=== PATIENT | female | born 1990 | race Caucasian/White ===

== ENCOUNTER 2020-01-03 11:28 | Outpatient (RCR) | payer OTHER ==
[~2020-01-03 11:28] MED LIST: ALDACTONE 25MG25 M1 PO; AMOXICILLIN875 MG PO; ANTIVERT 12.512.5 MG PO; FERROUS SU325 MG/TAB PO; HUMALOG100 U/ML SQ; LANTUS100 U/ML SC; LASIX 20MG TABL20 MG PO; MOTRIN 600600 MG/TAB PO; NORCO 325 MG-7.1 TAB PO; NOVOLOG 100U100 U/M1 SC; PERCOCET 325 MG1 TA2 PO; PRENATAL PO; TOPROL XL 25MG25 MG PO; ZESTRIL 5MG5 MG PO; ZOFRAN ODT4 MG PO
== END 2020-03-12 | disposition home or self-care (01) ==
LOC: WSOH
DX: S66.117A Strain of flexor muscle, fascia and tendon of left little finger at wrist and hand level, initial encounter (principal); E03.9 Hypothyroidism, unspecified; E11.9 Type 2 diabetes mellitus without complications; Z72.0 Tobacco use; Z98.890 Other specified postprocedural states; Y99.0 Civilian activity done for income or pay

== ENCOUNTER 2020-01-25 11:45 | Outpatient (RCR) | payer OTHER | END 2020-03-12 | disposition home or self-care (01) | LOC: WSOT | DX: S66.117A Strain of flexor muscle, fascia and tendon of left little finger at wrist and hand level, initial encounter (principal) ==

== ENCOUNTER 2021-07-09 15:01 | Outpatient (CLI) | payer OTHER ==
[~2021-07-09] VITALS: Ht 170.2 cm; Wt 100.9 kg
[2021-07-09 15:12] VITALS: BP 112/65; PULSE 97; TEMP 97.6
[2021-07-09 15:40] VITALS: PULSE 100
[2021-07-09] MEDS ORDERED: ASPIRIN 81M81 MG/TA2 PO (15:40)
[2021-07-09] MEDS ORDERED: SYNTHROID200 MCG/VI IV (15:41)
[2021-07-09] MEDS ORDERED: HUMALOG100 U/ML SQ (15:41)
[2021-07-09] MEDS ORDERED: PROBIOTIC BLEN1 EACH PO (15:42)
[2021-07-09] MEDS ORDERED: PRENATAL (15:42)
[2021-07-09] MEDS ORDERED: VITAMIN D31000 I1 PO (15:44)
--- NOTE | 2021-07-09 16:04 | NUR ---
1512 PATIENT HERE FROM HOME WITH COMPLAINTS OF INCREASE SOB, AND HEART PALPITATIONS.EFM ON FHT 120 BABY VERY ACTIVE, ACCELERATIONS NOTED. NO CONTRACTIONS. SAO2 96% ON ROOM AIR. LUNGS CLEAR. NO FEVER.NO COUGH. PATIENT HAS A LONG HISTORY TYPE 1 DIABETIC WITH PULMONARY EDEMA AND CARDIOMYAPATHY AFTER LAST DELIVERY [address] ERICKSON CALLED AND UPDATED AND ORDERS TO TAKE PATIENT TO ER FOR A FULL WORKUP BY SUPERVISOR SALVAGE. COMPLETE ASSESSMENT DONE. 1540 FHT 120 BABY VERY ACTIVE. VS WNL AND SAT 97%. PATIENT TO WHEELCHAIR AND TRANSPORTED TO ER. REPORT GIVEN TO ANDRA DAMON TO ASSUME CARE
== END 2021-07-09 15:40 ==
LOC: LDRO 15:01
DX: O26.892 Other specified pregnancy related conditions, second trimester (principal); R06.02 Shortness of breath; R00.2 Palpitations; Z3A.24 24 weeks gestation of pregnancy

== ENCOUNTER 2021-07-09 15:55 | Emergency (ER) | payer OTHER ==
[~2021-07-09] VITALS: Ht 170.2 cm; Wt 100.9 kg
[~2021-07-09 15:55] MED LIST changes: +ASPIRIN 81M81 MG/TA2 PO; +PRENATAL; +PROBIOTIC BLEN1 EACH PO; +SYNTHROID200 MCG/VI IV; +VITAMIN D31000 I1 PO
[2021-07-09 15:59] VITALS: TEMP 97.7
[2021-07-09 16:58] VITALS: BP 124/79; PULSE 96
== END 2021-07-09 16:58 | disposition home or self-care (01) ==
LOC: COL.ER 15:55
DX: O99.412 Diseases of the circulatory system complicating pregnancy, second trimester (principal); R00.2 Palpitations; Z3A.24 24 weeks gestation of pregnancy

== ENCOUNTER 2021-10-04 05:41 | Inpatient (IN) | payer OTHER ==
[~2021-10-04] VITALS: Ht 170.2 cm; Wt 110.0 kg
[2021-10-04] VITALS (18 sets, daily range): BP systolic 117–144; BP diastolic 67–88; PULSE 67–104; TEMP 97.7–98.1
--- NOTE | 2021-10-04 05:45 | NUR ---
Pt arrives to unit ambulatory for scheduled section. Clean gown on, bed in low and locked position, call light within reach. US and toco explained and applied. Pt reports good movement, denies contractions, vaginal bleeding, or LOF. Pt denies changes in vision, RUQ pain, or headaches. 18G IV started in left forearm with 1 attempt. Admission labs obtained off IV start. Consents reviewed and signed with patient and spouse.
[2021-10-04 06:46] LABS: BASO # 0.1 K/mm3 (0.0-0.2); BASO % 0.8 % (0.0-2.0); EOS # 0.2 K/mm3 (0.0-0.7); EOS % 1.8 % (0.0-4.0); GRAN # 6.8 K/mm3 (1.4-6.5); GRAN % 66.6 % (42.2-75.2); HEMOGLOBIN 11.1 g/dl (12.5-16.0); LYMPH # 2.2 K/mm3 (1.2-3.4); LYMPH % 21.5 % (20.0-51.0); MEAN CELL VOLUME 92 fl (80.0-100.0); MEAN CORPUSCULAR HEMOGLOBIN 31 pg (27-31); MEAN CORPUSCULAR HGB CONC 34 g/dl (33.0-37.0); MEAN PLATELET VOLUME 11.2 fl (7.4-10.4); MONO # 0.8 K/mm3 (0.1-0.6); MONO % 7.9 % (1.7-9.3); PLATELET COUNT 206 K/mm3 (130-400); RED BLOOD COUNT 3.59 M/mm3 (4.10-5.30); REDCELL DISTRIBUTION WIDTH-CV 12.7 % (11.5-14.5)
[2021-10-04 06:49] LABS: HEMATOCRIT 32.9 % (37.0-47.0)
[2021-10-04 07:08] LABS: ALBUMIN 2.4 gm/dL (3.5-5.0); BILIRUBIN,TOTAL 0.6 mg/dL (0.2-1.2); CALCIUM 9.2 mg/dL (8.4-10.2); CREATININE, serum 0.87 mg/dL (0.57-1.11); POTASSIUM 4.1 mmol/L (3.5-4.5); TOTAL PROTEIN 6.2 gm/dL (6.2-8.1)
[2021-10-04 07:28] LABS: TSH w REFLEX 5.266 uIU/mL (0.350-4.940)
[2021-10-04] MEDS ORDERED: NORMODYNE200 MG (09:30)
--- NOTE | 2021-10-04 15:24 | NUR ---
1410-PER PT MONITOR BS 195 AT THIS TIME.
--- NOTE | 2021-10-04 18:08 | NUR ---
1510-PER PT MONITOR BS 102 AT THIS TIME. PT TO EAT DINNER.
--- NOTE | 2021-10-04 20:45 | NUR ---
PT CHECKED HER 2 HOUR POST PRANDIAL IT WAS 170. SHE CHECKED IT A LITTLE LATE.
[2021-10-05 00:15] VITALS: BP 144/76; PULSE 92; TEMP 98
[2021-10-05 04:10] VITALS: BP 140/78; PULSE 93; TEMP 97.6
[2021-10-05 05:15] LABS: HEMATOCRIT 26.8 % (37.0-47.0); HEMOGLOBIN 9.2 g/dl (12.5-16.0)
--- NOTE | 2021-10-05 07:20 | NUR ---
0733- This RN called to bedside by Pt, BS 66, Pt requests lluvia crackers, Peanut butter, and apple juice, provided.
[2021-10-05 07:30] VITALS: BP 149/85; PULSE 86; TEMP 98.5
--- NOTE | 2021-10-05 08:42 | NUR ---
0842- Pt rechecked BS prior to breakfast, 78.
--- NOTE | 2021-10-05 10:49 | NUR ---
Initial visit; Patient thanked Firer [employer]house for offering congratulations and God's blessings for the of their son. Firer [employer]house thanked patient for choosing [facility].
[2021-10-05 18:00] VITALS: BP 142/71; PULSE 91; TEMP 97.7
--- NOTE | 2021-10-05 18:30 | NUR ---
PT. FASTING GLUCOSE WAS 84 AT 1740
--- NOTE | 2021-10-05 21:00 | NUR ---
PT.'S 2 HOUR PP WAS 88 PT HAS SOME ICE CREAM AND RECHECK OF GLUCOSE WAS 135 AT 2225 PT STATES SHE HAS ADJUSTED HER PUMP ACCORDING TO INSTUCTIONS FROM [facility]
[2021-10-05 22:00] VITALS: BP 138/76; PULSE 86; TEMP 97.8
--- NOTE | 2021-10-06 00:50 | NUR ---
PT CALLS OUT SAYING SHE IS SHAKY AND SWEATING - HER BLLOD SUGAR IS 50- APPLE JUICE X 2 GIVEN - LADONNA CRACKERS AND PEANUT BUTTER GIVEN. RN ASKS PT IS SHE ADJUSTED HER SETTINGS ON HER PUMP PER MFM INSTRUCTIONS- SHE SAID NO AND SHE STATES SHE HAS TAKEN HER PUMP OFF. AFTER SNACK- PT UP TO BATHROOM- LINENS AND GOWN CHANGED. 0120 PT VS TAKEN. PT STATES SHE FEELS BETTER
--- NOTE | 2021-10-06 01:25 | NUR ---
RN OBSERVES PT. ADJUSTING THE SETTINGS ON HER PUMP. PT DENIES NEEDS AT THIS TIME
[2021-10-06 01:30] VITALS: BP 132/78; PULSE 85; TEMP 98
[2021-10-06 08:25] VITALS: BP 145/83; PULSE 98; TEMP 98.2
--- NOTE | 2021-10-06 08:40 | NUR ---
Pt reports fasting BS 62, requests apple juice, has lluvia crackers and peanut butter at bedside.
[2021-10-06] MEDS ORDERED: IBU600 MG PO (10:03)
[2021-10-06] MEDS ORDERED: PERCOCET 325 MG1 TA2 PO (10:04)
[2021-10-06] MEDS ORDERED: LASIX 20MG TABL20 MG PO (10:05)
[2021-10-06] MEDS ORDERED: LEVOXYL0.2 MG PO (10:05)
--- NOTE | 2021-10-06 11:18 | NUR ---
BS 87.
[2021-10-06 11:54] VITALS: BP 155/88; PULSE 91
--- NOTE | 2021-10-06 12:40 | NUR ---
1215- Pt checks BS due to "feeling hot", BS 47. Pt requests apple juice, lluvia crackers, and peanut butter. 1240- AC BS 106, Pt eating lunch now.
[2021-10-06 13:41] VITALS: BP 131/71; PULSE 98
--- NOTE | 2021-10-06 14:00 | NUR ---
1400- BS 80.
--- NOTE | 2021-10-06 15:05 | NUR ---
Pt states after her last BS she ate a plum, lluvia crackers, peanut butter. 1505- BS 66. Pt requests peanut butter, crackers, apple juice. Pt warm, diaphoretic and states she feels like her BS is continuing to drop.
[2021-10-06 15:40] VITALS: BP 147/81; PULSE 88; TEMP 97.8
--- NOTE | 2021-10-06 15:50 | NUR ---
1550- BS94
--- NOTE | 2021-10-06 16:50 | NUR ---
Pt reports BS 87 prior to eating chicken strips with ranch dressing.
--- NOTE | 2021-10-06 19:00 | NUR ---
1900 ASLEEP 2009 AWAKENED. BLOOD SUGAR DONE PER BE=880. WANTING TO GO HOME 2019 DR ERICKSON NOTIFIED OF PT BLOOD SUGAR. PERCOCETX1 AND LABATOLOL GIVEN. 2044 DISCHARGE INFORMATION AND PAPERWORK GIVEN WITH NO QUESTIONS AT THIS TIME 2109 DISMISSED TO HOME PER AMB ACC BY AND BABY AND [employer] NET C DEVELOPER.
== END 2021-10-06 21:10 | disposition home or self-care (01) | DRG 788 ==
LOC: OB 05:41
PROVIDERS: ADMIT Obstetrics & Gynecology
PROC: 10D00Z1 Extraction of Products of Conception, Low, Open Approach (ICD-10-PCS; principal; 2021-10-04)
DX: O24.02 Pre-existing type 1 diabetes mellitus, in childbirth (principal); O14.94 Unspecified pre-eclampsia, complicating childbirth; O26.893 Other specified pregnancy related conditions, third trimester; O99.284 Endocrine, nutritional and metabolic diseases complicating childbirth; E03.9 Hypothyroidism, unspecified; E10.649 Type 1 diabetes mellitus with hypoglycemia without coma; O35.8XX0 Maternal care for other (suspected) fetal abnormality and damage, not applicable or unspecified; Z79.4 Long term (current) use of insulin; Z79.890 Hormone replacement therapy; Z67.41 Type O blood, Rh negative; Z3A.37 37 weeks gestation of pregnancy; Z37.0 Single live birth; Z86.16 Personal history of COVID-19; Z14.1 Cystic fibrosis carrier
CPT/HCPCS: J0690; J1100; J1885; J2370; J2405; J2590; J2791; J7030

== ENCOUNTER 2021-10-08 16:51 | Inpatient (IN) | payer OTHER ==
[~2021-10-08] VITALS: Ht 152.4 cm; Wt 101.0 kg
[2021-10-08] VITALS (73 sets, daily range): BP systolic 148; BP diastolic 88; PULSE 96; O2SAT 87–100
[~2021-10-08 16:51] MED LIST changes: +IBU600 MG PO; +LEVOXYL0.2 MG PO; +NORMODYNE200 MG
[2021-10-08] MEDS ORDERED: TRANDATE 100MG100 MG PO (17:16)
[2021-10-08 17:35] LABS: BASO # 0.1 K/mm3 (0.0-0.2); BASO % 0.7 % (0.0-2.0); EOS # 0.3 K/mm3 (0.0-0.7); EOS % 2.5 % (0.0-4.0); GRAN # 7.3 K/mm3 (1.4-6.5); GRAN % 73.7 % (42.2-75.2); HEMOGLOBIN 10.8 g/dl (12.5-16.0); LYMPH # 1.6 K/mm3 (1.2-3.4); LYMPH % 15.9 % (20.0-51.0); MEAN CELL VOLUME 93 fl (80.0-100.0); MEAN CORPUSCULAR HEMOGLOBIN 32 pg (27-31); MEAN CORPUSCULAR HGB CONC 34 g/dl (33.0-37.0); MEAN PLATELET VOLUME 9.7 fl (7.4-10.4); MONO # 0.7 K/mm3 (0.1-0.6); MONO % 6.7 % (1.7-9.3); PLATELET COUNT 341 K/mm3 (130-400); RED BLOOD COUNT 3.41 M/mm3 (4.10-5.30); REDCELL DISTRIBUTION WIDTH-CV 12.9 % (11.5-14.5)
[2021-10-08 17:36] LABS: HEMATOCRIT 31.6 % (37.0-47.0)
[2021-10-08 17:40] LABS: COLLECTION METHOD CLEAN CATCH
[2021-10-08 17:50] LABS: PH 7 (5-8); SQUAMOUS EPITHELIAL 0-2 /hpf (0-10); URINE APPEARANCE Clear (CLEAR/HAZY); URINE BACTERIA None Seen /hpf (NONE SEEN); URINE BLOOD Negative (NEGATIVE); URINE COLOR Straw (YELLOW); URINE GLUCOSE 3+ (NEGATIVE); URINE KETONE Trace (NEGATIVE); URINE NITRATE Negative (NEGATIVE); URINE PROTEIN(semi-quant) 1+ (NEGATIVE); URINE RBC 0-2 /hpf (0-2); URINE UROBILINOGEN Negative (NEGATIVE)
[2021-10-08 17:54] LABS: ALBUMIN 2.7 gm/dL (3.5-5.0); BILIRUBIN,TOTAL 0.5 mg/dL (0.2-1.2); CREATININE, serum 1.03 mg/dL (0.57-1.11); POTASSIUM 4.3 mmol/L (3.5-4.5); TOTAL PROTEIN 6.7 gm/dL (6.2-8.1)
[2021-10-08 18:00] LABS: TROPONIN-I 0.023 ng/mL (0.00-0.033)
[2021-10-09] VITALS (1045 sets, daily range): BP systolic 118–155; BP diastolic 65–99; PULSE 86–101; TEMP 97.4–98.5; O2SAT 83–100
[2021-10-09 06:22] LABS: BASO # 0.1 K/mm3 (0.0-0.2); BASO % 0.7 % (0.0-2.0); EOS # 0.3 K/mm3 (0.0-0.7); EOS % 3.2 % (0.0-4.0); GRAN # 5.6 K/mm3 (1.4-6.5); GRAN % 64.6 % (42.2-75.2); LYMPH % 22.6 % (20.0-51.0); MEAN CELL VOLUME 94 fl (80.0-100.0); MEAN CORPUSCULAR HGB CONC 33 g/dl (33.0-37.0); MEAN PLATELET VOLUME 9.2 fl (7.4-10.4); MONO # 0.7 K/mm3 (0.1-0.6); MONO % 8.4 % (1.7-9.3); PLATELET COUNT 316 K/mm3 (130-400); RED BLOOD COUNT 3.07 M/mm3 (4.10-5.30)
[2021-10-09 06:28] LABS: HEMATOCRIT 28.7 % (37.0-47.0); HEMOGLOBIN 9.5 g/dl (12.5-16.0); MEAN CORPUSCULAR HEMOGLOBIN 31 pg (27-31)
[2021-10-09 06:59] LABS: CALCIUM 8.6 mg/dL (8.4-10.2); CREATININE, serum 0.8 mg/dL (0.57-1.11); MAGNESIUM 1.9 mg/dL (1.6-2.6); POTASSIUM 3.8 mmol/L (3.5-4.5)
--- NOTE | 2021-10-09 09:13 | NUR ---
Manager Of Tires Sales met with patient to complete initial intake. Patient lives in [place] with her , Yossi (ph#[phone]) and their two children. One child is six years old and their other child is an infant, born on 10/04/21 via . Patient's primary care physician is Dr. Natacha Marlow and her OB is Dr. Boateng. Patient states she named her baby, Oziel and has everything she needs for baby at home. Patient does not have Advance Directives. Patient is independent with ADLS and has no questions or concerns at this time. Discharge Plan: Home
--- NOTE | 2021-10-09 10:00 | NUR ---
Initial visit; Patient thanked Sliver Lapper for coming in and visiting. Sliver Lapper saw her when she gave to her son not long ago. Sliver Lapper offered God's blessings and will keep Danita in her prayers along with her baby son and daughter.
--- NOTE | 2021-10-09 20:44 | NUR ---
REPORT GIVEN BEDSIDE TO NELSON EL FROM MEDICAL FLOOR. CAME DOWN WITH WHEELCHAIR TO TRANSPORT PT TO ROOM 319. PT NOTED TO HAVE COUGH, STATES SOMETIMES PRODUCTIVE. ON RA, PT PULSE OX AT 1950 WAS 85%, PLACED ON 2L NC AND HAS SINCE BEEN 95%. PT AND RN AWARE OF PT'S O2 NEED CURRENTLY AND WILL MONITOR FOR ANY CHANGES OR INCREASED DISTRESS. C SECTION INC LOOKS WNL, SKIN GLUE WITH EDGES WELL APPROXIMATED. SURROUNDING SKIN WNL, NO DRAINAGE OR REDDNESS. ANKLES BILAT WITH SKIN TIGHT AND REDDISH, EDEMA MORE FROM KNEE TO MID ROSALES, PT REPORTS HAS BEEN GETTING BETTER. PT HAS POST PADS AND UNDERWEAR, REPORTS NORMAL POST BLEEDING. ASKED TO REPORT TO RN IF ANY SIGNIFICANT CHANGES NOTED. RELINQUISHED CARE TO MEDICAL RN THIS TIME.
--- NOTE | 2021-10-09 20:44 | NUR ---
Bedside shift report recieved from ICU nurse NELSON Cedillo. Pt belongings gathered from room. Pt ambulated to wheelchair from bed. Steady gait. Pt wheeled down to room 319. Allergies reviewed and confirmed. Med rx reviewed with pt and confirmed. Shift assessment performed. Nourishment provided to pt. Pt oriented to room. Bed low and locked, call rivero within reach. No concerns at this time.
--- NOTE | 2021-10-09 23:56 | NUR ---
Pt alert and oriented. Follows commands. Breath sounds clear. Pt placed on 2L NC by AT RISK PARAPROFESSIONAL prior to transfer d/t o2 sats being in upper 80's on room air. Pt satting WNL on 2L NC. Pt appears a little SOB on exertion, but does not appear to be SOB at rest. Pt denies chest pain at this time. Prn pain medication administered prior to tx for pain. Pt reports relief on re-assessment. No significant skin issues noted. Pt has BLE edema/tightness. Pt reports some tenderness on palpation. BLE are also slightly red, closer to the ankle/feet area. Pt has a incision on the lower abdominal area. Site is C/D/I. Pt denies pain/tenderness at the site. SCD's applied. Pt has steady ambulation. Up to void. FSBS monitored q4hrs per orders. Pt does have a slight cough. Shift assessment performed. VS stable. Afebrile. tubing machine operator on. Bed low and locked, call rivero within reach. Pt does not report any questions at this time. No new concerns at this time.
[2021-10-10 00:17] VITALS: BP 139/83; PULSE 100; TEMP 97.7
--- NOTE | 2021-10-10 00:58 | NUR ---
Pt reported feeling "wheezy" and states it is keeping her up. Pt remains on 2L NC, satting in lower 90's. Notified REE Souza. The following orders were made: 1. Respiratory breathing treatment prn 2. Repeat CXR in morning Will notify respiratory therapy. No other changes at this time.
--- NOTE | 2021-10-10 01:34 | NUR ---
Tx given via mouthpiece, tolerated well. Pt encouraged to take deep breaths and situp instead of reclining during waking hours.
[2021-10-10 03:51] VITALS: BP 148/80; PULSE 99; TEMP 98
--- NOTE | 2021-10-10 05:29 | NUR ---
No adverse events overnight. Pt alert and oriented. On 2L NC satting in lower 90's. Pt's blood sugar at 0400 was 74, I had pt drink 4 oz of apple juice. VS stable. Afebrile. Prn pain medication administered x1 with relief reported. Pt states she feels "less wheezy" after the respiratory breathing treatment. Pt does not have audible wheezing noted. Repeat CXR ordered for this morning, pt is aware. Pt's lung sounds are clear, but pt reports having a "wet cough". No significant sputum noted. Pt up to void overnight. Bed low and locked, call rivero within reach. No new concerns at this time.
[2021-10-10 07:27] VITALS: BP 151/89; PULSE 98; TEMP 98
[2021-10-10] MEDS ORDERED: COREG 6.256.25 MG/TA PO (11:26)
[2021-10-10] MEDS ORDERED: COZAAR 25MG25 MG/TAB PO (11:27)
[2021-10-10] MEDS ORDERED: ALDACTONE 25MG25 M1 PO (11:27)
[2021-10-10] MEDS ORDERED: LASIX 20MG TABL20 MG PO (11:28)
[2021-10-10 11:56] VITALS: BP 154/84; PULSE 82; TEMP 98
--- NOTE | 2021-10-10 12:48 | NUR ---
Follow-up visit; Patient thanked Air Sealing Technician for checking on her and Oziel (her new baby) again and hoping that she feels good enough to go home today. Air Sealing Technician offered God's blessings to their family.
--- NOTE | 2021-10-10 13:55 | NUR ---
PATIENT GIVEN ALL DISCHARGE INSTRUCTIONS AND EDUCATION. IV DISCONTINUED. TELEMETRY DICONTINUED. PATIENT LEFT IN STABLE CONDITION IN THE CARE OF HER .
== END 2021-10-10 13:50 | disposition home or self-care (01) | DRG 776 ==
LOC: COL.ER 16:51 → MEDICAL 18:45 → ICU 18:45 → MEDICAL 10-09 18:27
PROVIDERS: Emergency Medicine; Student in an Organized Health Care Education/Training Program; ADMIT Internal Medicine
DX: O99.43 Diseases of the circulatory system complicating the puerperium (principal); I50.33 Acute on chronic diastolic (congestive) heart failure; J91.8 Pleural effusion in other conditions classified elsewhere; O24.13 Pre-existing type 2 diabetes mellitus, in the puerperium; I42.8 Other cardiomyopathies; I11.0 Hypertensive heart disease with heart failure; E03.9 Hypothyroidism, unspecified; E11.65 Type 2 diabetes mellitus with hyperglycemia; O99.285 Endocrine, nutritional and metabolic diseases complicating the puerperium; I34.0 Nonrheumatic mitral (valve) insufficiency; I16.0 Hypertensive urgency; Z79.890 Hormone replacement therapy; Z79.4 Long term (current) use of insulin
CPT/HCPCS: J1650; J1815; J1940; Q9967

== ENCOUNTER → 2021-10-11 | Outpatient (CLI) | payer OTHER ==
[~2021-10-11] MED LIST changes: +COREG 6.256.25 MG/TA PO; +COZAAR 25MG25 MG/TAB PO; +TRANDATE 100MG100 MG PO
== END ==
LOC: COL.LAB 13:50
DX: O90.3 Peripartum cardiomyopathy (principal)

== ENCOUNTER → 2021-10-17 | Outpatient (CLI) | payer OTHER ==
[2021-10-17 11:26] LABS: HEMOGLOBIN 11.6 g/dl (12.5-16.0); MEAN CELL VOLUME 94 fl (80.0-100.0); MEAN CORPUSCULAR HEMOGLOBIN 31 pg (27-31); MEAN CORPUSCULAR HGB CONC 33 g/dl (33.0-37.0); MEAN PLATELET VOLUME 9.4 fl (7.4-10.4); PLATELET COUNT 345 K/mm3 (130-400); RED BLOOD COUNT 3.77 M/mm3 (4.10-5.30); REDCELL DISTRIBUTION WIDTH-CV 12.4 % (11.5-14.5)
[2021-10-17 11:28] LABS: HEMATOCRIT 35.4 % (37.0-47.0)
[2021-10-17 11:57] LABS: CALCIUM 8.7 mg/dL (8.4-10.2); CREATININE, serum 0.94 mg/dL (0.57-1.11); POTASSIUM 4.1 mmol/L (3.5-4.5)
== END ==
LOC: COL.LAB 10:15
PROVIDERS: Nurse Practitioner
DX: O90.3 Peripartum cardiomyopathy (principal)

== ENCOUNTER → 2022-12-31 | Outpatient (CLI) | payer OTHER, BC ==
[~2022-12-31] MED LIST changes: +NORCO 325 MG-51 TAB PO; +ZITHROMAX Z PA250 MG PO; +ZOFRAN 4MG T4 MG/TAB PO
== END ==
LOC: COL.RAD 07:00
DX: R10.11 Right upper quadrant pain (principal)
CPT/HCPCS: A9537-JZ; J2805

== ENCOUNTER 2023-02-14 07:20 | Emergency (ER) | payer BC ==
[~2023-02-14] VITALS: Ht 170.2 cm; Wt 100.0 kg
[2023-02-14 07:35] VITALS: TEMP 97.5
[2023-02-14 08:24] LABS: HEMATOCRIT 37.8 % (37.0-47.0); HEMOGLOBIN 12.6 g/dl (12.5-16.0); MEAN CELL VOLUME 92 fl (80.0-100.0); MEAN CORPUSCULAR HEMOGLOBIN 31 pg (27-31); MEAN CORPUSCULAR HGB CONC 33 g/dl (33.0-37.0); MEAN PLATELET VOLUME 9.2 fl (7.4-10.4); PLATELET COUNT 238 K/mm3 (130-400); REDCELL DISTRIBUTION WIDTH-CV 12.1 % (11.5-14.5)
[2023-02-14 08:40] LABS: ALBUMIN 3.5 gm/dL (3.5-5.0); BILIRUBIN,TOTAL 0.6 mg/dL (0.2-1.2); CALCIUM 8.5 mg/dL (8.4-10.2); CREATININE, serum 1.02 mg/dL (0.57-1.11); LYMPHOCYTE 6 % (20.0-51.0); NEUTROPHILS 90 % (42.0-75.2); PLATELET ESTIMATE NORMAL (NORMAL); POTASSIUM 4.1 mmol/L (3.5-4.5); TOTAL PROTEIN 7.1 gm/dL (6.2-8.1)
[2023-02-14] MEDS ORDERED: ZOFRAN ODT4 MG PO (09:20)
[2023-02-14 09:26] VITALS: BP 136/83; PULSE 98
== END 2023-02-14 09:34 | disposition home or self-care (01) ==
LOC: COL.ER 07:20
PROVIDERS: Personal Emergency Response Attendant
DX: E86.0 Dehydration (principal); R11.10 Vomiting, unspecified
CPT/HCPCS: J2405; J7030

== ENCOUNTER 2023-07-17 17:38 | Emergency (ER) | payer OTHER, BC ==
[~2023-07-17] VITALS: Ht 170.2 cm; Wt 100.0 kg
[2023-07-17 17:44] VITALS: TEMP 98.5
[2023-07-17] MEDS ORDERED: Albuterol/Ipratropium 3 MG-0.5 MG/3 ML Neb Soln IH ONE (18:00)
[2023-07-17] MEDS ORDERED: LORazepam 2 MG/ML 1 ML VIAL IV ONE (18:00)
[2023-07-17] MEDS ORDERED: NS 1,000 ML IV ONE (18:00)
[2023-07-17 18:14] LABS: BASO # 0.1 K/mm3 (0.0-0.2); EOS # 0.3 K/mm3 (0.0-0.7); EOS % 2.6 % (0.0-4.0); GRAN # 5.6 K/mm3 (1.4-6.5); GRAN % 52.7 % (42.2-75.2); HEMOGLOBIN 11.6 g/dl (12.5-16.0); LYMPH # 3.8 K/mm3 (1.2-3.4); LYMPH % 35.9 % (20.0-51.0); MEAN CELL VOLUME 89 fl (80.0-100.0); MEAN CORPUSCULAR HEMOGLOBIN 31 pg (27-31); MEAN CORPUSCULAR HGB CONC 35 g/dl (33.0-37.0); MEAN PLATELET VOLUME 8.9 fl (7.4-10.4); MONO # 0.8 K/mm3 (0.1-0.6); MONO % 7.6 % (1.7-9.3); PLATELET COUNT 293 K/mm3 (130-400); RED BLOOD COUNT 3.78 M/mm3 (4.10-5.30); REDCELL DISTRIBUTION WIDTH-CV 12.3 % (11.5-14.5)
[2023-07-17 18:15] LABS: HEMATOCRIT 33.6 % (37.0-47.0)
[2023-07-17 18:33] LABS: ALBUMIN 3.3 g/dL (3.5-5.0); BILIRUBIN,TOTAL 0.2 mg/dL (0.2-1.2); CALCIUM 9.5 mg/dL (8.4-10.2); CREATININE, serum 1.01 mg/dL (0.57-1.11); POTASSIUM 4.3 mEq/L (3.5-4.5); TOTAL PROTEIN 7.1 g/dl (6.2-8.1)
[2023-07-17] MEDS ORDERED: Dextrose 50% Water 25 GM/50 ML SYRINGE IV ONE (18:45)
[2023-07-17] MEDS ORDERED: Ondansetron 4 MG/2 ML VIAL IV ONE (20:00)
[2023-07-17] MEDS ORDERED: PREDNISONE20 MG PO (20:15)
[2023-07-17] MEDS ORDERED: VENTOLIN0.09 MG IH (20:15)
[2023-07-17 20:21] VITALS: BP 129/70; PULSE 87
== END 2023-07-17 20:23 | disposition home or self-care (01) ==
LOC: COL.ER 17:38
PROVIDERS: Physician Assistant
DX: R06.02 Shortness of breath (principal); R05.9 Cough, unspecified; E11.9 Type 2 diabetes mellitus without complications; Z79.4 Long term (current) use of insulin
CPT/HCPCS: J2060; J2405; J7030